=== PATIENT | male | born 2000 | race Hispanic/Latino ===

== ENCOUNTER → 2020-09-25 | Day surgery (SDC) | payer BC ==
[~2020-09-25] MED LIST: ACETAMINOPHEN/CODEINE 300MG - 30MG TAB ONE; BUPIVACAINE 0.25% 30ML SDV ONE; CEFAZOLIN SOD 1 GM/NS 50ML 50 ML IV ONE; DEXAMETHASONE SOD PHOS INJ 4 MG/ML VIAL ONE; FENTANYL CITRATE/PF 100MCG/2 ML INJ ONE; LIDOCAINE HCL 2% JELLY 5 ML TUBE ONE; LIDOCAINE HCL 2% LOCAL INJ 5 ML SDV VIAL INJ ONE; MEPERIDINE HCL INJ 25 MG/ML VIAL ONE; MUPIROCIN 2% OINT 22 GM TUBE ONE; NEXIUM40 MG PO; ONDANSETRON HCL INJ 2MG/ML 2ML 2 MG/ML VIAL ONE; PROPOFOL IV EMULSION 10 MG/ML 20 ML VIAL ONE; SEVOFLURANE INHAL SOLN 250 ML PEN BTL ONE; TYLENOL EXTRA500 MG PO
--- NOTE | 2020-09-25 13:16 | Diagnostic Imaging Report ---
OR Fluoroscopy: IMPRESSION: Fluoroscopy service provided in the OR. Interpretation not requested. Signed by: Parminder Mendez MD on 09/25/2020 1:12 PM
[2020-09-25 14:20] VITALS: BP 129/80
--- NOTE | 2020-09-25 19:00 | Operative Report ---
DATE OF PROCEDURE: 09/25/2020 SURGEON: Alfredo Mckenzie MD OPINION POLLS SURVEY WORKER: Fausto Ingram, certified PA. PREOPERATIVE DIAGNOSIS: Left ankle fibula fracture. POSTOPERATIVE DIAGNOSIS: Left ankle fibula fracture. PROCEDURE: Open reduction and internal fixation, left ankle. INDICATIONS: The patient is a 20-year-old gentleman, who has a displaced left ankle fracture. We saw him and initially recommended surgical intervention. The patient was reluctant to accept the recommendation. He returned after a week of splinting and we again recommended surgical intervention. At this time, he decided to proceed with the recommendation. We plan on an open reduction with internal fixation. The risks and benefits have been explained. All of his questions have been answered. He states he understands and wishes to proceed. PROCEDURE IN DETAIL: The patient was brought to the operating room and placed under general anesthetic. His left lower extremity was prepped and draped in a sterile manner. A preoperative time-out was performed. The left lower extremity was exsanguinated and a proximal tourniquet was inflated to 300 mmHg. An incision was made over the fibular shaft. The fracture site was carefully exposed. A reduction clamp was used to perform an anatomic reduction. A lag screw was placed from anterior to posterior. Good secure fixation was felt to be obtained. Fixation was augmented with an 8-hole one-third semitubular plate. This was fixed proximally with cortical screws. Distally with a combination of cortical and locking screws. Intraoperative x-rays confirmed anatomic reduction and good positioning of the hardware. The ankle was stressed and there was no widening of the ankle mortise. The wound was thoroughly irrigated. The deep fascia was closed with interrupted buried 2-0 Vicryl stitches. The skin was closed with subcuticular Vicryl and beatrice. A sterile bandage and a well-padded splint were applied. The patient was extubated and transported to the recovery room in stable condition. There was no blood loss and all needle and sponge counts were correct. Alfredo Mckenzie MD DR/EDWARD /[id number]
== END | disposition home or self-care (01) ==
LOC: OR 08:09
PROVIDERS: ATTEND Specialist
DX: S82.832A Other fracture of upper and lower end of left fibula, initial encounter for closed fracture (principal); X50.1XXA Overexertion from prolonged static or awkward postures, initial encounter; Y93.66 Activity, soccer; Y99.8 Other external cause status; R73.03 Prediabetes; Z01.812 Encounter for preprocedural laboratory examination; Z20.828 Contact with and (suspected) exposure to other viral communicable diseases
CPT/HCPCS: 27784; 76000; C1713 ×4; J0690; J1100; J2001 ×2; J2175; J2405; J2704; J3010; U0002